=== PATIENT | male | born 1955 | race Caucasian/White ===

== ENCOUNTER 2016-12-05 10:20 | Emergency (ER) | payer SELFPAY ==
[~2016-12-05] VITALS: Ht 162.6 cm; Wt 64.0 kg
[2016-12-05] MEDS ORDERED: HYDR12.529 PO (10:37)
[2016-12-05] MEDS ORDERED: LORA1TAB PO (10:37)
[2016-12-05] MEDS ORDERED: AMLO2.5T45 PO (10:37)
[2016-12-05] MEDS ORDERED: LORAZEPAM 2MG/ML CPJ IV ONE (11:15)
[2016-12-05] MEDS ORDERED: SODIUM CHLORIDE 0.9% 1000ML BAG (SEPSIS BOLUS) IV ONE (11:15)
[2016-12-05 11:48] LABS: BASOPHILS % 0.6 % (0.0-2.0); EOSINOPHILS % 0.1 % (0.0-5.0); HEMATOCRIT. 45.1 % (42.0-52.0); HEMOGLOBIN. 15.6 g/dL (14.0-18.0); LYMPHOCYTES % 14.6 % (20.0-50.0); MEAN CORPUSCULAR HEMOGLOBIN 34.2 pg (28.0-32.0); MEAN CORPUSCULAR VOLUME 98.9 fL (80.0-94.0); MONOCYTES % 12.6 % (2.0-8.0); NEUTROPHILS % 72.1 % (40.0-76.0); RED BLOOD CELL COUNT 4.55 mill/uL (4.7-6.1); RED CELL DISTRIBUTION WIDTH 13.5 % (11.6-14.6)
[2016-12-05 11:53] LABS: INR 1.1
[2016-12-05 12:02] LABS: CARBON DIOXIDE 26 mEq/L (21-32); CHLORIDE 94 mEq/L (98-107); ETHANOL BLOOD < 10 mg/dL
[2016-12-05 12:17] LABS: MEAN PLATELET VOLUME 9.1 fl (7.4-10.4); PLATELET 115 x1000/uL (130-400)
[2016-12-05 12:55] LABS: CLARITY URINE CLEAR (CLEAR); COLOR URINE YELLOW (YELLOW); GLUCOSE URINE NEGATIVE (NEGATIVE); KETONES URINE TRACE (NEGATIVE); LEUKOCYTE ESTERASE URINE NEGATIVE (NEGATIVE); NITRITE URINE NEGATIVE (NEGATIVE); OCCULT BLOOD URINE NEGATIVE (NEGATIVE); PROTEIN URINE NEGATIVE (NEGATIVE); SPECIFIC GRAVITY URINE 1.011 (1.005-1.030)
[2016-12-05 13:33] LABS: *AMPHETAMINES SCREEN URINE NEGATIVE (NEGATIVE); *BARBITURATES SCREEN URINE NEGATIVE (NEGATIVE); *BENZODIAZEPINES SCREEN URINE NEGATIVE (NEGATIVE); *COCAINE SCREEN URINE NEGATIVE (NEGATIVE); CANNABINOID URINE SCREEN NEGATIVE (NEGATIVE); METHADONE URINE SCREEN NEGATIVE (NEGATIVE); OPIATES URINE SCREEN NEGATIVE (NEGATIVE); PHENCYCLIDINE URINE SCREEN NEGATIVE (NEGATIVE)
[2016-12-05] MEDS ORDERED: IOHEXOL-300 100 ML BOTTLE ONE (14:41)
[2016-12-05 15:47] VITALS: BP 130/82
== END 2016-12-05 16:10 | disposition home or self-care (01) ==
LOC: ER 12:55 → CANBEDREQ 16:58
DX: F41.1 Generalized anxiety disorder (principal); K04.7 Periapical abscess without sinus; L03.211 Cellulitis of face; E86.0 Dehydration; F10.239 Alcohol dependence with withdrawal, unspecified; I10 Essential (primary) hypertension; F17.200 Nicotine dependence, unspecified, uncomplicated; Y90.9 Presence of alcohol in blood, level not specified
CPT/HCPCS: 36415; 70450; 70487; 71010; 80053; 80305; 81003; 83605; 83690; 85025; 85610; 87040; 87086; 93005; 96374; 99285; G0482; J2060; J7030; Q9967